=== PATIENT | female | born 1975 | race Asian ===

== ENCOUNTER 2023-07-17 10:10 | Inpatient (IN) | payer BC ==
[~2023-07-17] VITALS: Ht 152.4 cm; Wt 66.0 kg
[2023-07-17 10:53] LABS: BASOPHILS % 0.7 % (0.0-2.0); EOSINOPHILS % 2.3 % (0.0-5.0); HEMATOCRIT. 43.1 % (36.0-48.0); HEMOGLOBIN. 14.7 g/dL (12.0-16.0); LYMPHOCYTES % 32.3 % (20.0-50.0); MEAN CORPUSCULAR HEMOGLOBIN 29.3 pg (28.0-32.0); MEAN CORPUSCULAR VOLUME 86.3 fL (81.0-99.0); MEAN PLATELET VOLUME 7.4 fl (7.4-10.4); MONOCYTES % 6.8 % (2.0-8.0); NEUTROPHILS % 57.9 % (40.0-76.0); PLATELET 272 x1000/uL (130-400); RED CELL DISTRIBUTION WIDTH 13.4 % (11.6-14.6); WHITE BLOOD COUNT 7.9 x1000/uL (4.5-11.0)
[2023-07-17 10:58] LABS: CHLORIDE 109 mEq/L (98-107); INDEX HEMOLYSI 1 (1-3); INDEX ICTERIC 1 (1-4); INDEX LIPEMIC 1 (1-3); POTASSIUM 3.3 mEq/L (3.5-5.1); SODIUM 140 mEq/L (136-145)
[2023-07-17 10:59] LABS: PROTHROMBIN TIME 10.5 sec (9.6-11.0)
[2023-07-17] MEDS ORDERED: ASPIRIN 325MG EC TABLET PO NR (11:00)
[2023-07-17 11:09] LABS: ALANINE AMINOTRANSFERASE 110 IU/L (13-61); ALBUMIN 3.8 g/dL (3.4-5.0); ASPARTATE AMINOTRANSFERASE 42 IU/L (15-37); BILIRUBIN TOTAL 0.4 mg/dL (0.1-1.0); CALCIUM 8.3 mg/dL (8.5-10.1); CARBON DIOXIDE 26 mEq/L (21-32); CREATININE 0.6 mg/dL (0.6-1.3); GLUCOSE 135 mg/dL (70-105); PROTEIN TOTAL 7.2 g/dL (6.0-8.3); UREA NITROGEN BLOOD 9 mg/dL (7-21)
[2023-07-17 11:13] LABS: TROPONIN I HIGH SENSITIVITY < 4 ng/L (<54)
[2023-07-17 12:03] LABS: CLARITY URINE CLEAR (CLEAR); COLOR URINE YELLOW (YELLOW); GLUCOSE URINE 3+ (NEGATIVE); KETONES URINE NEGATIVE (NEGATIVE); LEUKOCYTE ESTERASE URINE NEGATIVE (NEGATIVE); NITRITE URINE NEGATIVE (NEGATIVE); OCCULT BLOOD URINE NEGATIVE (NEGATIVE); PH URINE 6.5 (4.5-8.0); PROTEIN URINE NEGATIVE (NEGATIVE); SPECIFIC GRAVITY URINE 1.019 (1.005-1.030); UROBILINOGEN URINE 0.2 E.U./dL (0.2-1.0)
[2023-07-17 13:23] LABS: SQUAMOUS EPITHELIAL CELL URINE RARE /lpf (RARE/1+)
[2023-07-17 13:24] LABS: YEAST URINE RARE
[2023-07-17 13:25] LABS: BACTERIA URINE TRACE
[2023-07-17 13:26] LABS: RBC URINE NONE SEEN /hpf (0-2); WBC URINE NONE SEEN /hpf (0-2)
[2023-07-17 16:52] LABS: TROPONIN I HIGH SENSITIVITY 4 ng/L (<54)
[2023-07-17] MEDS ORDERED: POTASSIUM CHLORIDE 20MEQ TABLET SR PO ONE (18:30)
[2023-07-18] VITALS (7 sets, daily range): BP systolic 125–153; BP diastolic 67–103; PULSE 56–79; RESP 13–24; TEMP 98–98.6
[2023-07-18] MEDS ORDERED: DAPA10TA PO (01:06)
[2023-07-18] MEDS ORDERED: ROSU5TAB PO (01:06)
[2023-07-18] MEDS ORDERED: CLAR10 PO (01:06)
[2023-07-18] MEDS ORDERED: VALS80TA30 PO (01:06)
[2023-07-18] MEDS ORDERED: SEMA0.25 SQ (01:06)
[2023-07-18] MEDS ORDERED: OMEP20CA14 PO (01:06)
[2023-07-18] MEDS ORDERED: ALPR0.25 PO (01:06)
[2023-07-18] MEDS ORDERED: DEXTROSE 50% WATER 50ML SYRINGE IV PRN (03:30)
[2023-07-18] MEDS ORDERED: HYDROCODONE/ACETAMINOPHEN 5/325MG TABLET PO PRN (03:30)
[2023-07-18] MEDS ORDERED: IPRATROPIUM/ALBUTEROL 0.5-3(2.5)MG/3ML NEB HHN PRN (03:30)
[2023-07-18] MEDS ORDERED: NALOXONE HCL 0.4MG/ML VIAL IV PRN (03:45)
[2023-07-18] MEDS: BLOOD SUGAR DIAGNOSTIC STRIP TEST SCH ×4 (06:18→21:00)
[2023-07-18] MEDS: INSULIN LISPRO 100 UNITS/ML SUBCUT SCH ×4 (06:21→21:00)
[2023-07-18] MEDS: OMEPRAZOLE 20MG CAPSULE EXTENDED RELEASE PO SCH ×2 (08:58→16:53)
[2023-07-18] MEDS: ASPIRIN 81MG TABLET PO SCH (08:58)
[2023-07-18] MEDS: LORATADINE 10MG TABLET PO SCH (08:58)
[2023-07-18] MEDS: LOSARTAN 50 MG TABLET PO SCH (08:59)
[2023-07-18] MEDS ORDERED: ALPRAZOLAM 0.25 MG TABLET PO PRN (09:00)
[2023-07-18] MEDS ORDERED: METOPROLOL TARTRATE 5MG/5ML VIAL IV PRN (10:45)
[2023-07-18 10:50] LABS: *AMPHETAMINES SCREEN URINE NEGATIVE (NEGATIVE); *BARBITURATES SCREEN URINE NEGATIVE (NEGATIVE); *BENZODIAZEPINES SCREEN URINE NEGATIVE (NEGATIVE); *COCAINE SCREEN URINE NEGATIVE (NEGATIVE); CANNABINOID URINE SCREEN NEGATIVE (NEGATIVE); ECSTASY MDMA SCREEN URINE NEGATIVE (NEGATIVE); METHADONE URINE SCREEN NEGATIVE (NEGATIVE); OPIATES URINE SCREEN NEGATIVE (NEGATIVE); PHENCYCLIDINE URINE SCREEN NEGATIVE (NEGATIVE)
[2023-07-18 12:42] LABS: INDEX HEMOLYSI 2 (1-3); INDEX ICTERIC 1 (1-4); INDEX LIPEMIC 1 (1-3)
[2023-07-18 12:53] LABS: ALANINE AMINOTRANSFERASE 92 IU/L (13-61); ALBUMIN 3.4 g/dL (3.4-5.0); ASPARTATE AMINOTRANSFERASE 34 IU/L (15-37); BILIRUBIN DIRECT < 0.1 mg/dL (0.0-0.2); BILIRUBIN TOTAL 0.5 mg/dL (0.1-1.0); CHOLESTEROL 101 mg/dL (<200); HDL CHOLESTEROL 48 mg/dL (40-59); LDL CHOLESTEROL 48 mg/dL (5-100); PROTEIN TOTAL 6.5 g/dL (6.0-8.3); TRIGLYCERIDE 100 mg/dL (0-150)
[2023-07-18 15:13] LABS: HEPATITIS B SURFACE ANTIGEN NEGATIVE
[2023-07-18 15:39] LABS: HEPATITIS C VIR.AB 0.13 INDEXVAL (0.00-0.80)
[2023-07-18] MEDS ORDERED: BLOO-1065 TOP (16:38)
[2023-07-18] MEDS ORDERED: SUCR1TAB PO (16:38)
[2023-07-18] MEDS ORDERED: LANC-1022 SQ (16:38)
[2023-07-18] MEDS ORDERED: SITA100T11 PO (16:38)
[2023-07-18] MEDS ORDERED: ATORVASTATIN CALCIUM 20MG TABLET PO SCH (21:00)
[2023-07-18] MEDS ORDERED: ACETAMINOPHEN 325MG TABLET PO PRN (22:30)
[2023-07-19] VITALS: BP 125/78; PULSE 60; RESP 16; TEMP 98
[2023-07-19 04:00] VITALS: BP 126/99; PULSE 67; RESP 18; TEMP 98.2
[2023-07-19] MEDS: BLOOD SUGAR DIAGNOSTIC STRIP TEST SCH ×2 (06:41→11:50)
[2023-07-19] MEDS: INSULIN LISPRO 100 UNITS/ML SUBCUT SCH ×2 (06:41→12:20)
[2023-07-19 08:00] VITALS: BP 129/95; PULSE 73; RESP 18; TEMP 97.8
[2023-07-19] MEDS ORDERED: METOPROLOL TARTRATE 25MG TABLET PO SCH (09:00)
[2023-07-19] MEDS ORDERED: NITROGLYCERIN SPRAY/4.9GM CAN TL NR (09:15)
[2023-07-19] MEDS ORDERED: IOHEXOL-350 100 ML BOTTLE ONE (09:31)
[2023-07-19] MEDS: ASPIRIN 81MG TABLET PO SCH (10:15)
[2023-07-19] MEDS: OMEPRAZOLE 20MG CAPSULE EXTENDED RELEASE PO SCH (10:16)
[2023-07-19] MEDS: LOSARTAN 50 MG TABLET PO SCH (10:16)
[2023-07-19] MEDS: LORATADINE 10MG TABLET PO SCH (10:16)
[2023-07-19 12:00] VITALS: BP 147/95; PULSE 63; RESP 18; TEMP 97.8
[2023-07-19 13:27] VITALS: BP 135/76; PULSE 65; TEMP 97.8; O2SAT 99
== END 2023-07-19 15:30 | disposition home or self-care (01) | DRG 313 ==
LOC: ER 10:10 → MICUSO 21:40 → EDBEDREQTM 21:43 → EDBEDREQ 21:43 → 3WST 07-18 01:52
PROVIDERS: ADMIT Internal Medicine; ATTEND Internal Medicine
DX: R07.9 Chest pain, unspecified (principal); E78.00 Pure hypercholesterolemia, unspecified; I10 Essential (primary) hypertension; E11.9 Type 2 diabetes mellitus without complications; J30.2 Other seasonal allergic rhinitis; K76.0 Fatty (change of) liver, not elsewhere classified; E87.6 Hypokalemia; R79.89 Other specified abnormal findings of blood chemistry; K21.9 Gastro-esophageal reflux disease without esophagitis; Z88.0 Allergy status to penicillin; Z88.2 Allergy status to sulfonamides; Z91.040 Latex allergy status; Z90.710 Acquired absence of both cervix and uterus; Z82.49 Family history of ischemic heart disease and other diseases of the circulatory system
CPT/HCPCS: 36415; 71045; 75571; 76705; 80053; 80061; 80076; 80305; 81003; 82962; 83036; 84484; 85025; 85379; 86803; 87340; 93005; 93306; 99285; J3490; Q9967